=== PATIENT | female | born 1995 | race Caucasian/White ===

== ENCOUNTER 2021-03-10 13:22 | Emergency (ER) | payer OTHER, SELFPAY ==
--- NOTE | ~2021-03-10 | XR_ITS ---
EXAMINATION: XR knee LT min 4V DATE: 03/10/2021 13:56 INDICATION: Left knee injury. TECHNIQUE: 5 views of left knee were obtained. COMPARISON: None. FINDINGS: Bone alignment is normal. No fracture. Joint spaces are well maintained. There is a moderat e-sized knee joint effusion. IMPRESSION: 1. Moderate-sized left knee joint effusion. Reviewed, dictated and finalized at location A.
[2021-03-10 13:39] VITALS: BP 113/66; PULSE 68; RESP 16; TEMP 37.3; O2SAT 100
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
== END 2021-03-10 14:26 | disposition home or self-care (01) ==
PROVIDERS: Emergency Provider Emergency Medicine
DX: S80.02XA Contusion of left knee, initial encounter (principal); V18.4XXA Pedal cycle driver injured in noncollision transport accident in traffic accident, initial encounter
CPT/HCPCS: 73564; 99203; G0463

== ENCOUNTER 2021-09-02 17:28 | Emergency (ER) | payer OTHER, SELFPAY ==
[2021-09-02 17:41] VITALS: BP 105/55; PULSE 74; RESP 18; TEMP 36.8; O2SAT 100
--- NOTE | 2021-09-02 17:52 | ED.URI ---
HPI - URI/Sore Throat General Chief Complaint: Upper Respiratory Infection Stated Complaint: difficulty swallowing Time Seen by Provider: 09/02/21 17:55 Source: patient, RN notes reviewed and old records reviewed Mode of arrival: ambulatory History of Present Illness HPI Narrative: 26-year-old female who presents to [facility] with complaints of 1 week duration of acute sore throat and swelling of bilateral tonsils. Patient denies any fevers chills or sweats or any body aches. Patient states that the first part of August she had sore throat for about 4-5 days which resolved. Patient denies any cough, nasal congestion or drainage or any dyspnea. Patient admits to difficulty with swallowing of liquids and food. MD elicited complaint: sore throat and other (acute tonsil swelling) Pertinent past history: other (tonsillitis) Onset (ago): week(s) (1) Consistency: progressively worsening Treatments prior to arrival: none Related Data Allergies Allergy/AdvReac Type Severity Reaction Status Date / Time No Known Allergies Allergy Verified 09/02/21 17:50 Review of Systems Review of Systems: CONSTITUTIONAL: Denies fever, chills, or sweats. EYES: Denies visual changes, redness, or discharge. ENT: Denies rhinorrhea, congestion, positive for sore throat, no otalgia, positive for difficulty swallowing. CARDIOVASCULAR: Denies chest pain, palpitations, or edema. RESPIRATORY: Denies cough or dyspnea. GASTROINTESTINAL: Denies abdominal pain, nausea, vomiting, or diarrhea. GENITOURINARY: Denies dysuria or hematuria. SKIN: Denies rash or itching. MUSCULOSKELETAL: Denies back pain, joint pain, or myalgia. NEUROLOGIC: Denies headache, numbness, or weakness. PSYCHIATRIC: Denies anxiety or depression. All systems reviewed & are unremarkable except as noted in HPI and below PMFSH Past Medical History Medical History (Updated 09/02/21 @ 18:19 by Carine Mast NP) Clavicle fracture, shaft ORIF required with plate Strep pharyngitis Social History Social History (Updated 09/02/21 @ 18:18 by Carine Mast NP) Smoking status: Never smoker Alcohol intake: current Alcohol use details: social Substance use: never Additional occupation/education comments: [employer] Gender identity (if verbalized by the patient): Female Comments At time of signature, agree with nursing past medical, surgical, social and family history. There is no relevant family history pertinent to the presenting complaint Exam Narrative: GENERAL: Well-appearing, well-nourished, and in no acute distress. HEAD: Normocephalic, atraumatic. EYES: PERRLA and EOMI. ENT: Nares clear, no rhinorrhea or epistaxis. Mucous membranes moist.TM's normal with good light reflex, throat red with tonsils acutely swollen and red with uvula enlarged. no lesions or exudates noted, states that some difficulty and discomfort with swelling. NECK: Supple.lymphadenopathy CHEST: Clear to auscultation. No respiratory distress.SAO2 100% on room air SAO2 100% on room air HEART: Regular rate and rhythm. No murmur heard. Normal peripheral pulses. ABDOMEN: Soft, nontender, nondistended, normal active bowel sounds. EXTREMITIES: Normal range of motion. No edema. SKIN: Warm, dry, no rash. NEURO: No focal deficits. Alert and oriented x3. Course Course Level of Care: Express Care Visit Vital Signs Vital signs: Vital Signs Temperature 36.8 C 09/02/21 17:41 Pulse Rate 74 09/02/21 17:41 Respiratory Rate 18 09/02/21 17:41 Blood Pressure 105/55 L 09/02/21 17:41 Pulse Oximetry 100 09/02/21 17:41 Temperature 36.8 C 09/02/21 17:41 Pulse Rate 74 09/02/21 17:41 Respiratory Rate 18 09/02/21 17:41 Blood Pressure 105/55 L 09/02/21 17:41 Pulse Oximetry 100 09/02/21 17:41 MDM - URI/Sore Throat Differential Diagnosis Differential diagnosis: Likely pharyngitis and other (Strep pharyngitis, acute tonsillitis, acute tonsil swelling) Medical Records Attestatio
== END 2021-09-02 18:18 | disposition home or self-care (01) ==
PROVIDERS: Emergency Provider Registered Nurse
DX: J02.0 Streptococcal pharyngitis (principal); J35.1 Hypertrophy of tonsils
CPT/HCPCS: 99213; G0463

== ENCOUNTER 2021-11-03 19:05 | Emergency (ER) | payer OTHER, SELFPAY ==
[2021-11-03 19:18] VITALS: BP 105/66; PULSE 80; RESP 18; TEMP 36.9; O2SAT 100
--- NOTE | 2021-11-03 19:20 | ED.URI ---
HPI - URI/Sore Throat General Chief Complaint: Upper Respiratory Infection Stated Complaint: Sore Throat Time Seen by Provider: 11/03/21 19:20 Source: patient Mode of arrival: ambulatory Limitations: no limitations History of Present Illness HPI Narrative: 26-year-old female presents with sore throat for about 1 week. Pain to right side of throat only. Reports that tonsils are enlarged but is not sure if this is her baseline. Has had pain with swallowing. Patient denies fever, chills, headache, body aches, fatigue. Did have strep 2 months ago. All systems reviewed and negative except as noted above. Related Data Allergies Allergy/AdvReac Type Severity Reaction Status Date / Time No Known Allergies Allergy Verified 11/03/21 19:14 Review of Systems Review of Systems: CONSTITUTIONAL: Denies fever, chills, or sweats. EYES: Denies visual changes, redness, or discharge. ENT: Denies rhinorrhea, congestion. Reports right-sided sore throat RESPIRATORY: Denies cough or dyspnea. GASTROINTESTINAL: Denies abdominal pain, nausea, vomiting, or diarrhea. GENITOURINARY: Denies dysuria or hematuria. SKIN: Denies rash or itching. MUSCULOSKELETAL: Denies back pain, joint pain, or myalgia. NEUROLOGIC: Denies headache, numbness, or weakness. PSYCHIATRIC: Denies anxiety or depression. All other systems reviewed are negative, except as documented in HPI. [facility] Past Medical History Medical History (Updated 11/03/21 @ 19:31 by Yesenia Lauren NP) Clavicle fracture, shaft ORIF required with plate Strep pharyngitis Social History Social History (Updated 09/02/21 @ 18:18 by Carine Mast NP) Smoking status: Never smoker Alcohol intake: current Alcohol use details: social Substance use: never Additional occupation/education comments: [employer] Gender identity (if verbalized by the patient): Female Comments At time of signature, agree with nursing past medical, surgical, social and family history. There is no relevant family history pertinent to the presenting complaint. Exam Narrative: GENERAL: This is a well-nourished, well-developed patient, in no apparent distress. HEAD: normocephalic, atraumatic. EYES: PERRL. Sclera clear/white. Vision is grossly intact. EARS: External ears normal, auditory canals clear and without drainage, TMs normal without perforation. Hearing grossly intact. NOSE: External nose normal with no obvious nasal discharge, nares without redness, no rhinorrhea. THROAT: Mucous membranes moist, posterior pharynx clear. Tonsils 2+ bilaterally. Large tonsil stone to right tonsil. NECK: Neck supple, non-tender without lymphadenopathy, masses or thyromegaly. CARDIOVASCULAR: Regular rate and rhythm without murmurs, gallops, or rubs. RESPIRATORY: Clear to auscultation. Breath sounds equal bilaterally. No wheezes, rales, or rhonchi. SKIN: warm, Dry, intact with no suspicious lesions or rash, good texture and turgor. NEURO: awake, alert, and oriented to person, place and time. There were no obvious focal neurologic abnormalities. EXTREMITIES: Normal range of motion to all extremities. Course Course Level of Care: Express Care Visit Vital Signs Vital signs: Vital Signs Temperature 36.9 C 11/03/21 19:18 Pulse Rate 80 11/03/21 19:18 Respiratory Rate 18 11/03/21 19:18 Blood Pressure 105/66 11/03/21 19:18 Pulse Oximetry 100 11/03/21 19:18 Temperature 36.9 C 11/03/21 19:18 Pulse Rate 80 11/03/21 19:18 Respiratory Rate 18 11/03/21 19:18 Blood Pressure 105/66 11/03/21 19:18 Pulse Oximetry 100 11/03/21 19:18 Reviewed MDM - URI/Sore Throat MDM Narrative Medical decision making narrative: Patient is aware of diagnosis, understands and agrees to treatment plan. Anticipatory guidance given. Patient agrees to follow-up as directed and is aware of reasons to seek care at the emergency department. Portions of this record may have been created with voice kathy
== END 2021-11-03 19:33 | disposition home or self-care (01) ==
PROVIDERS: Emergency Provider Nurse Practitioner Family; PCP Family Medicine
DX: J35.8 Other chronic diseases of tonsils and adenoids (principal)
CPT/HCPCS: 87081; 87880; 99213; G0463

== ENCOUNTER 2021-12-16 13:05 | Emergency (ER) | payer OTHER, SELFPAY ==
[2021-12-16 13:09] VITALS: BP 132/71; PULSE 70; RESP 20; TEMP 36.9; O2SAT 100
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
[2021-12-16 14:13] LABS: HIV 1/2 Ab P24 Ag Result Negative (Negative)
[2021-12-16 14:55] LABS: Hepatitis B Surface Antigen Negative (Negative)
[2021-12-16 15:12] LABS: Hepatitis C Virus Antibody Negative (Negative)
== END 2021-12-16 15:04 | disposition home or self-care (01) ==
PROVIDERS: Emergency Medicine; Emergency Provider Nurse Practitioner Family; PCP Family Medicine
DX: Z77.21 Contact with and (suspected) exposure to potentially hazardous body fluids (principal)
CPT/HCPCS: 36415; 86703; 86803; 87340; 99283; G0432

== ENCOUNTER 2024-02-21 11:26 | Emergency (ER) | payer OTHER, SELFPAY ==
--- NOTE | 2024-02-21 11:27 | ED.GENADULT ---
HPI - General Adult General Chief complaint: Ear Stated complaint: Earache Time Seen by Provider: 02/21/24 11:50 Source: patient, RN notes reviewed and old records reviewed Mode of arrival: ambulatory Limitations: no limitations History of Present Illness HPI narrative: 28-year-old female presents to the [facility] with complaints of left ear pain that started couple of days ago. Patient states that she does use Q-tips. Patient denies any fevers. Denies any other symptoms. Related Data Allergies Allergy/AdvReac Type Severity Reaction Status Date / Time No Known Allergies Allergy Verified 02/21/24 11:27 Review of Systems Review of Systems: All systems reviewed & are unremarkable except as noted in HPI and below Constitutional: Constitutional: Reports no additional constitutional complaints Eyes: Eyes: Reports no additional eye complaints ENT: Reports as per HPI, Denies ear discharge, Reports otalgia, Denies facial pain, Denies neck pain, Denies nose pain, Denies sore throat, Denies throat swelling and Denies tongue swelling Cardiovascular: Cardiovascular: Reports no additional cardiovascular complaints, Denies chest pain and Denies dyspnea Respiratory: Respiratory: Reports no additional respiratory complaints, Denies chest congestion, Denies cough and Denies dyspnea Gastrointestinal: Gastrointestinal: Reports no additional gastrointestinal complaints, Denies abdominal pain, Denies nausea and Denies vomiting Musculoskeletal: Musculoskeletal: Reports no additional musculoskeletal complaints Integumentary/Breasts: Skin/Breast: Reports system reviewed and no additional complaints, except as docu Neurologic: Reports system reviewed and no additional complaints, except as documented Psychiatric: Psychiatric: Reports no additional psychiatric complaints Allergic/Immunologic: Allergic/Immunologic: Reports no additional allergic/immunologic complaints [facility] Past Medical History Medical History Clavicle fracture, shaft ORIF required with plate Strep pharyngitis Social History Social History Smoking status: Never smoker Alcohol intake: current Alcohol use details: social Substance use: never Additional occupation/education comments: [employer] Gender identity (if verbalized by the patient): Female Comments At the time of my signature, I reviewed and agree with the nursing past medical, surgical, social, and family history. There is no relevant family history pertinent to the patient complaint. Exam Const: General: cooperative, healthy appearing, comfortable, no acute distress, well developed, alert and well nourished Nutritional Appearance: well nourished Orientation/consciousness: patient oriented x3 Limitations: no limitations HENMT: Head: normal to inspection Ears: hearing grossly normal bilaterally, external ears normal, TM's normal bilaterally, mastoids normal, no periauricular adenopathy and Abnormal EAC present erythema (Small abrasion noted between 3 and 9 mid ear canal) on the left, edema on the left (Mild edema lower portion) and EAC tenderness on the left; no foreign body and no otic discharge Face/Nose/Sinus: Normal external nose present, Normal nares present, Normal nasal mucous membranes and turbinates present, normal facial exam and face symmetric Face and sinus: normal facial exam and face symmetric Mouth: Yes Normal oral and palatal mucosa present, Yes lip normal, Yes tongue normal and Yes moist mucous membranes Throat: posterior oropharynx normal, tonsils normal, uvula midline and no uvular edema Eyes: General: appearance normal, both eyes and all related structures Alignment and Position: alignment normal Periorbital: periorbital findings normal Pupils: Equal, round and reactive pupils present EOM: EOMs intact bilaterally Neck: Neck: normal visual inspection, full ROM, no lymp
[2024-02-21 11:38] VITALS: BP 98/83; PULSE 56; RESP 15; TEMP 36.7; O2SAT 100
== END 2024-02-21 11:59 | disposition home or self-care (01) ==
PROVIDERS: Emergency Provider Nurse Practitioner; PCP Family Medicine
DX: S00.411A Abrasion of right ear, initial encounter (principal); L08.9 Local infection of the skin and subcutaneous tissue, unspecified; X58.XXXA Exposure to other specified factors, initial encounter
CPT/HCPCS: 99213; G0463